=== PATIENT | male | born 1985 | race Caucasian/White ===

== ENCOUNTER 2018-05-19 20:46 | Inpatient (IN) ==
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
[2018-05-19] MEDS: Sod Chloride 0.9% Inj 1,000 ML IV.SIG SCH ×2 (21:45→22:19)
[2018-05-19 22:23] LABS: Baso # (Auto) 0.1 th/mm3 (0.0-0.2); Baso % (Auto) 0.5 % (0.0-2.0); Eos % (Auto) 0.2 % (0.0-4.0); Hematocrit 51.7 % (39.0-51.0); Hemoglobin 17.4 gm/dL (13.0-17.0); Lymph # (Auto) 3.5 th/mm3 (1.0-4.8); Lymph % (Auto) 16.3 % (9.0-44.0); Mean Corpuscular HGB Conc 33.6 % (32.0-36.0); Mean Corpuscular Hemoglobin 27.8 pg (27.0-34.0); Mean Corpuscular Volume 82.9 fL (80.0-100.0); Mean Platelet Volume 8.9 fL (7.0-11.0); Mono # (Auto) 1.8 th/mm3 (0.0-0.9); Mono % (Auto) 8.6 % (0.0-8.0); Neut # (Auto) 15.8 th/mm3 (1.8-7.7); Neut % (Auto) 74.4 % (16.0-70.0); Platelet Count 456 th/mm3 (150-450); Red Blood Count 6.24 mil/mm3 (4.50-5.90); Red Cell Distribution Width 13.9 % (11.6-17.2); White Blood Count 21.3 th/mm3 (4.0-11.0)
[2018-05-19 22:53] LABS: Alanine Aminotransferase 18 U/L (12-78); Albumin 4.3 g/dL (3.4-5.0); Alkaline Phosphatase 90 U/L (45-117); Anion Gap 18 meq/L (5-15); Aspartate Aminotransferase 14 U/L (15-37); Blood Urea Nitrogen 13 mg/dL (7-18); Calcium 9.4 mg/dL (8.5-10.1); Carbon Dioxide 25.2 meq/L (21.0-32.0); Chloride 99 meq/L (98-107); Glomerular Filtration Rate 40 mL/min (>89); Glucose,Random 138 mg/dL (74-106); Sodium 142 meq/L (136-145); Total Protein 9.3 g/dL (6.4-8.2)
[2018-05-19 22:56] LABS: Potassium 2.6 meq/L (3.5-5.1)
[2018-05-19] MEDS ORDERED: Sod Chloride 0.9% Inj 1,000 ML IV.SIG SCH (23:00)
[2018-05-20 01:45] LABS: Calcium 8.2 mg/dL (8.5-10.1); Carbon Dioxide 28.8 meq/L (21.0-32.0)
[2018-05-20 01:52] LABS: Potassium 2.9 meq/L (3.5-5.1)
[2018-05-20 03:39] LABS: Amphetamine Screen,Urine Pos (Neg); Barbiturate Screen,Urine Neg (Neg); Cannabinoid Screen,Urine Neg (Neg); Cocaine Screen,Urine Neg (Neg)
[2018-05-20 03:42] LABS: Opiate Screen,Urine Pos (Neg)
[2018-05-20] MEDS ORDERED: Haloperidol Inj 5 MG/ML Ampul IM ONE (05:37)
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
[2018-05-20] MEDS ORDERED: Amitriptyline 25 MG Tablet PO ONE (22:55)
[2018-05-20] MEDS ORDERED: Sertraline 100 MG Tablet PO ONE (22:57)
[2018-05-21] MEDS ORDERED: Loperamide 2 MG Capsule PO ONE (02:33)
[2018-05-21 02:58] LABS: Baso # (Auto) 0.1 th/mm3 (0.0-0.2); Baso % (Auto) 0.9 % (0.0-2.0); Eos # (Auto) 0.1 th/mm3 (0.0-0.4); Eos % (Auto) 0.8 % (0.0-4.0); Hematocrit 43.3 % (39.0-51.0); Hemoglobin 14.7 gm/dL (13.0-17.0); Lymph # (Auto) 3.1 th/mm3 (1.0-4.8); Lymph % (Auto) 24.4 % (9.0-44.0); Mean Corpuscular HGB Conc 33.9 % (32.0-36.0); Mean Corpuscular Volume 82.6 fL (80.0-100.0); Mean Platelet Volume 8.4 fL (7.0-11.0); Mono % (Auto) 8.2 % (0.0-8.0); Neut # (Auto) 8.4 th/mm3 (1.8-7.7); Neut % (Auto) 65.7 % (16.0-70.0); Platelet Count 327 th/mm3 (150-450); Red Blood Count 5.24 mil/mm3 (4.50-5.90); Red Cell Distribution Width 13.9 % (11.6-17.2); White Blood Count 12.7 th/mm3 (4.0-11.0)
[2018-05-21 03:19] LABS: Anion Gap 8 meq/L (5-15); Blood Urea Nitrogen 8 mg/dL (7-18); Calcium 8.9 mg/dL (8.5-10.1); Carbon Dioxide 28.7 meq/L (21.0-32.0); Chloride 103 meq/L (98-107); Glomerular Filtration Rate Greater Than 89 mL/min (>89); Glucose,Random 96 mg/dL (74-106); Potassium 3.1 meq/L (3.5-5.1); Sodium 140 meq/L (136-145)
[2018-05-21] MEDS ORDERED: hydrALAZINE 25 MG Tablet PO ONE (07:56)
[2018-05-21] MEDS ORDERED: clonazePAM 1 MG Tablet PO ONE (08:15)
[2018-05-21] MEDS ORDERED: Haloperidol Inj 5 MG/ML Ampul IM PRN (17:49)
[2018-05-21 18:51] LABS: Bilirubin,Urine Negative (Negative); Clarity,Urine Clear (Clear); Color,Urine Yellow (Yellw/Straw); Glucose,Urine (UA) Negative (Negative); Hyaline Casts,Urine 15 /lpf (0-3); Leukocyte Esterase,Urine Negative (Negative); Mucus,Urine Few /lpf (Occasional); Nitrite,Urine Negative (Negative); Specific Gravity,Urine 1.008 (1.002-1.035); Squamous Epithelial Cell,Urine <1 /hpf (0-5)
[2018-05-21] MEDS ORDERED: Diphenoxylate/Atropine 2.5/0.025 MG Tablet PO ONE (20:09)
[2018-05-22] MEDS: LORazepam 1 MG Tablet PO PRN ×2 (03:01→20:41)
[2018-05-22] MEDS ORDERED: Bisacodyl 10 MG Supp RECTAL PRN (17:26)
[2018-05-22] MEDS ORDERED: Aluminum/Magnesium/Simethacone Susp 30 ML UDC PO PRN (17:26)
[2018-05-22] MEDS: Acetaminophen 325 MG Tablet PO PRN (20:46)
[2018-05-22] MEDS ORDERED: Senna/Docusate Sodium 8.6/50 MG Tablet PO SCH (21:00)
[2018-05-23] MEDS: LORazepam 1 MG Tablet PO PRN ×2 (02:43→12:13)
[2018-05-23] MEDS: Acetaminophen 325 MG Tablet PO PRN (02:43)
[2018-05-23 05:59] LABS: Anion Gap 12 meq/L (5-15); Blood Urea Nitrogen 6 mg/dL (7-18); Calcium 8.7 mg/dL (8.5-10.1); Carbon Dioxide 30.1 meq/L (21.0-32.0); Chloride 99 meq/L (98-107); Chol/HDL Ratio 3.85 Ratio; Cholesterol 141 mg/dL (120-200); Glomerular Filtration Rate Greater Than 89 mL/min (>89); Glucose,Random 88 mg/dL (74-106); HDL Cholesterol 36.6 mg/dL (40.0-60.0); LDL Cholesterol,Calculated 85 mg/dL (0-99); Sodium 141 meq/L (136-145); Triglycerides 99 mg/dL (42-150)
[2018-05-23 06:10] LABS: Potassium 2.5 meq/L (3.5-5.1)
[2018-05-23] MEDS ORDERED: Potassium Chloride 25 MEQ Effervescent Tablet PO ONE ×2 (08:13→21:00)
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
[2018-05-23] MEDS: Potassium Chlor 10 mEq Premix 10 MEQ/100 ML PIGGYBACK IV.SIG SCH ×2 (12:13→13:38)
[2018-05-23] MEDS: HYDROCHLOROTHIAZIDE 12.5 MG PO SCH ×3 (12:14→15:07)
[2018-05-23 12:23] LABS: Hemoglobin A1c 5.4 % (4.3-6.0)
[2018-05-23] MEDS: clonazePAM 0.5 MG Tablet PO SCH ×2 (15:07→21:47)
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
[2018-05-23] MEDS ORDERED: QUEtiapine 25 MG Tablet PO SCH (21:00)
[2018-05-24] MEDS: clonazePAM 0.5 MG Tablet PO SCH ×3 (05:02→21:12)
[2018-05-24 06:56] LABS: Hematocrit 42.9 % (39.0-51.0); Hemoglobin 14.2 gm/dL (13.0-17.0); Mean Corpuscular HGB Conc 33.2 % (32.0-36.0); Mean Corpuscular Hemoglobin 27.7 pg (27.0-34.0); Mean Corpuscular Volume 83.5 fL (80.0-100.0); Mean Platelet Volume 8.7 fL (7.0-11.0); Platelet Count 285 th/mm3 (150-450); Red Blood Count 5.13 mil/mm3 (4.50-5.90); Red Cell Distribution Width 14.1 % (11.6-17.2); White Blood Count 9.3 th/mm3 (4.0-11.0)
[2018-05-24 07:17] LABS: Anion Gap 9 meq/L (5-15); Blood Urea Nitrogen 7 mg/dL (7-18); Calcium 8.6 mg/dL (8.5-10.1); Carbon Dioxide 29.1 meq/L (21.0-32.0); Chloride 102 meq/L (98-107); Glomerular Filtration Rate Greater Than 89 mL/min (>89); Glucose,Random 90 mg/dL (74-106); Magnesium 2.2 mg/dL (1.5-2.5); Sodium 140 meq/L (136-145)
[2018-05-24 07:19] LABS: Potassium 3.4 meq/L (3.5-5.1)
[2018-05-24] MEDS ORDERED: Potassium Chloride 25 MEQ Effervescent Tablet PO ONE (07:26)
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
[2018-05-24] MEDS: Lisinopril 5 MG Tablet PO SCH (10:02)
[2018-05-24] MEDS: HYDROCHLOROTHIAZIDE 12.5 MG PO SCH (10:14)
[2018-05-24] MEDS ORDERED: QUEtiapine 100 MG Tablet PO SCH (21:00)
[2018-05-24] MEDS: Acetaminophen 325 MG Tablet PO PRN (21:12)
--- NOTE | 2018-05-24 21:52 | P.PNPSY ---
Subjective Remarks: Patient seen for follow up chart reviewed. Discussion with nursing staff reported that patient seclusive to his room, has not showered since admission. Patient found lying down, states being concerned of his pain medication regimen. He reports improved sleep, mood being "ok", less depressed, denies any suicidal ideation nor any further auditory hallucinations. [place] and states that he would think about his childhood memories and that his parents in that house. He states believing that the time there "broke me". He states feeling anxious being moved to a different unit where he would be around more people. Review of Systems All other systems reviewed negative except as stated in HPI Mental Status Examination Appearance: Disheveled Consciousness: Alert Orientation: Person (At least) Motor Activity: Other (No motor abnormalities noted) Speech: Other (Selectively mute at times) Language: Other (Limited sample) Mood: Oppositional Affect: Blunt Thought Process & Associations: Other (Limited sample) Thought Content: Preoccupations Hallucination Type: Auditory Suicidal Ideation: No Suicidal Plan: No Suicidal Intention: No Homicidal Ideation: No (No specific victim) Homicidal Plan: No Homicidal Intention: No Insight: Poor Judgment: Poor Assessment and Plan - Assessment (1) Adjustment disorder with mixed disturbance of emotions and conduct Code(s): F43.25 - Adjustment disorder with mixed disturbance of emotions and conduct Status: Acute (2) Polysubstance abuse Code(s): F19.10 - Other psychoactive substance abuse, uncomplicated Status: Acute - Plan Plan: Patient continues with depressed mood, denies any suicidal ideation. He is noted with poor hygiene and is encouraged to shower. Will increase quetiapine to 100mg HS for mood stabilization. Monitor mood and behavior. Discharge planningi in progress. Justification for Continued Inpatient Stay: At risk for further decompensation at lower level of care.
[2018-05-25] MEDS: clonazePAM 0.5 MG Tablet PO SCH ×3 (06:09→21:26)
[2018-05-25] MEDS: Lisinopril 5 MG Tablet PO SCH (08:52)
--- NOTE | 2018-05-25 10:06 | P.PNPSY ---
Subjective Remarks: Patient seen for follow, chart reviewed. Discussion nursing staff reported the patient continues to have anxiety about leaving his room, compliant with medications. Patient was found lying hospital bed noted B, cooperative. Patient states that he is feeling alright, feeling less depressed, denying suicide ideations at this time. Patient reports no auditory visual hallucinations but continues to have anxiety about being around other people. Patient states that for the past 7 years he has only gone to a convenience store out of his home I handful of times but aware that he he will need to engage in therapy to help with his anxiety. Patient was encouraged to participate in groups and activities on the unit which he agreed. Review of Systems All other systems reviewed negative except as stated in HPI Mental Status Examination Appearance: Disheveled Consciousness: Alert Orientation: Person (At least) Motor Activity: Other (No motor abnormalities noted) Speech: Unremarkable Language: Adequate Fund of Knowledge: Inadequate Attention and Concentration: Adequate Memory: Unremarkable Mood: Good Affect: Sad Thought Process & Associations: Linear Thought Content: Preoccupations (With being around other people) Hallucination Type: None Delusion Type: None Suicidal Ideation: No Suicidal Plan: No Suicidal Intention: No Homicidal Ideation: No Homicidal Plan: No Homicidal Intention: No Insight: Poor Judgment: Poor Assessment and Plan - Assessment (1) Adjustment disorder with mixed disturbance of emotions and conduct Code(s): F43.25 - Adjustment disorder with mixed disturbance of emotions and conduct Status: Acute (2) Polysubstance abuse Code(s): F19.10 - Other psychoactive substance abuse, uncomplicated Status: Acute - Plan Plan: Patient this time continues to report feeling less depressed, denying suicide ideations but continues with anxiety of being around others. We will continue to titrate quetiapine to 150 mg p.o. at bedtime for depression as a monotherapy. Continue rest of medications. Continue to monitor mood and behavior. Encourage patient to participate in groups and activities on the unit. Discharge planning a progress. Justification for Continued Inpatient Stay: At risk of further decompensation a lower level care.
[2018-05-25] MEDS: QUEtiapine 100 MG Tablet PO SCH (21:25)
[2018-05-26] MEDS: clonazePAM 0.5 MG Tablet PO SCH ×3 (06:00→22:09)
[2018-05-26] MEDS: Lisinopril 5 MG Tablet PO SCH (09:00)
--- NOTE | 2018-05-26 13:16 | P.PNPSY ---
Subjective Remarks: The patient was seen today for psychiatric reevaluation. The case was discussed with nurse in charge. Patient reports that she feels okay. She has been compliant her medications, no significant side effects reported. At times it seems to be oddly related. But fully oriented at this moment. Mental Status Examination Appearance: Disheveled Consciousness: Alert Orientation: Person (At least) Motor Activity: Other (No motor abnormalities noted) Speech: Unremarkable Language: Adequate Fund of Knowledge: Inadequate Attention and Concentration: Adequate Memory: Unremarkable Mood: Good Affect: Sad Thought Process & Associations: Linear Thought Content: Preoccupations (With being around other people) Hallucination Type: None Delusion Type: None Suicidal Ideation: No Suicidal Plan: No Suicidal Intention: No Homicidal Ideation: No Homicidal Plan: No Homicidal Intention: No Insight: Poor Judgment: Poor Assessment and Plan - Assessment (1) Adjustment disorder with mixed disturbance of emotions and conduct Code(s): F43.25 - Adjustment disorder with mixed disturbance of emotions and conduct Status: Acute (2) Polysubstance abuse Code(s): F19.10 - Other psychoactive substance abuse, uncomplicated Status: Acute - Plan Plan: Continue current psychotropic regimen. Justification for Continued Inpatient Stay: Continue psychiatric hospitalization for stabilization
[2018-05-26] MEDS: QUEtiapine 100 MG Tablet PO SCH (20:23)
[2018-05-27] MEDS: clonazePAM 0.5 MG Tablet PO SCH ×3 (06:38→22:00)
[2018-05-27] MEDS: Lisinopril 5 MG Tablet PO SCH (08:19)
--- NOTE | 2018-05-27 16:30 | P.PNPSY ---
Subjective Remarks: Pt seen and discussed with staff. He was admitted for suicidal ideation and depression. He has been compliant with medications and denies side effects. He has been somewhat isolative but has started attending groups. He denies SI today. Mental Status Examination Appearance: Disheveled Consciousness: Alert Orientation: Person (At least) Motor Activity: Other (No motor abnormalities noted) Speech: Unremarkable Language: Adequate Fund of Knowledge: Inadequate Attention and Concentration: Adequate Memory: Unremarkable Mood: Good Affect: Sad Thought Process & Associations: Linear Thought Content: Preoccupations (With being around other people) Hallucination Type: None Delusion Type: None Suicidal Ideation: No Suicidal Plan: No Suicidal Intention: No Homicidal Ideation: No Homicidal Plan: No Homicidal Intention: No Insight: Poor Judgment: Poor Assessment and Plan - Assessment (1) Adjustment disorder with mixed disturbance of emotions and conduct Code(s): F43.25 - Adjustment disorder with mixed disturbance of emotions and conduct Status: Acute (2) Polysubstance abuse Code(s): F19.10 - Other psychoactive substance abuse, uncomplicated Status: Acute - Plan Plan: Continue current tx plan Justification for Continued Inpatient Stay: risk of decompensation
[2018-05-27 17:30] VITALS: RESP 20
[2018-05-27] MEDS: QUEtiapine 100 MG Tablet PO SCH (20:39)
[2018-05-28 05:52] VITALS: BP 168/92; PULSE 112; TEMP 97.4; O2SAT 95
[2018-05-28] MEDS: Lisinopril 5 MG Tablet PO SCH (08:24)
--- NOTE | 2018-05-28 12:20 | P.TTN ---
- Patient Problems Problems: 1. Discharge planning 2. Medication compliance 3. Knowledge deficit 4. Lack of coping skills - Progress Toward Goals Provider Present: Dr. Dean Tavarez Provider Input: 05/28/2018; patient will be dc back to dorm room with outpatient follow-up Nurse(s) Present: RN Nurse Input: 05/28/2018 Stable on meds, compliant with treatment no behavior Psychiatric Counselors Present: Edita Gates [facility] Psychiatric Therapist Input: Counselor will set up outpatient follow-up, arrange transport back to [facility] dorm or with pt's friends. Mental health with [facility] therapist, and med management with [facility]/RT/OT/[place] Present: Mello Franklin OT - Documentation Teaching Recipient: Patient
[2018-05-28] MEDS: clonazePAM 0.5 MG Tablet PO SCH (13:24)
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
== END 2018-05-28 16:30 | disposition home or self-care (01) ==
LOC: NEPD 20:46 → NEDA 05-22 17:31 → H4EA 05-22 19:30
PROVIDERS: ADMIT Student in an Organized Health Care Education/Training Program; ATTEND Student in an Organized Health Care Education/Training Program

== ENCOUNTER 2018-05-29 23:03 | Inpatient (IN) ==
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
[2018-05-30] MEDS ORDERED: Sod Chloride 0.9% Inj 1,000 ML IV.SIG SCH (08:30)
[2018-05-30] MEDS ORDERED: Bisacodyl 10 MG Supp RECTAL PRN (08:32)
[2018-05-30] MEDS ORDERED: Aluminum/Magnesium/Simethacone Susp 30 ML UDC PO PRN (08:32)
[2018-05-30] MEDS ORDERED: Non-Formulary Drug (Oxycodone [Oxycodone] 30 MG) PO PRN (08:34)
[2018-05-30 08:42] VITALS: RESP 18
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
[2018-05-30] MEDS: Senna/Docusate Sodium 8.6/50 MG Tablet PO SCH ×2 (08:51→20:38)
[2018-05-30] MEDS: Lisinopril 5 MG Tablet PO SCH (08:52)
[2018-05-30 08:59] LABS: Baso # (Auto) 0.1 th/mm3 (0.0-0.2); Baso % (Auto) 0.8 % (0.0-2.0); Eos # (Auto) 0.1 th/mm3 (0.0-0.4); Eos % (Auto) 0.6 % (0.0-4.0); Hematocrit 51.1 % (39.0-51.0); Hemoglobin 16.7 gm/dL (13.0-17.0); Lymph % (Auto) 20.6 % (9.0-44.0); Mean Corpuscular HGB Conc 32.6 % (32.0-36.0); Mean Corpuscular Hemoglobin 27.6 pg (27.0-34.0); Mean Corpuscular Volume 84.6 fL (80.0-100.0); Mean Platelet Volume 8.4 fL (7.0-11.0); Mono # (Auto) 1.2 th/mm3 (0.0-0.9); Mono % (Auto) 8.3 % (0.0-8.0); Neut % (Auto) 69.7 % (16.0-70.0); Platelet Count 394 th/mm3 (150-450); Red Blood Count 6.04 mil/mm3 (4.50-5.90); Red Cell Distribution Width 14.7 % (11.6-17.2); White Blood Count 14.4 th/mm3 (4.0-11.0)
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
[2018-05-30] MEDS: Amphetamine/Dextroamphetamine XR 30 MG Capsule PO SCH (09:27)
[2018-05-30 09:29] LABS: Alanine Aminotransferase 29 U/L (12-78); Albumin 4.2 g/dL (3.4-5.0); Anion Gap 11 meq/L (5-15); Aspartate Aminotransferase 15 U/L (15-37); Blood Urea Nitrogen 17 mg/dL (7-18); Calcium 9.3 mg/dL (8.5-10.1); Carbon Dioxide 21.1 meq/L (21.0-32.0); Chloride 103 meq/L (98-107); Glomerular Filtration Rate Greater Than 89 mL/min (>89); Glucose,Random 107 mg/dL (74-106); Potassium 3.5 meq/L (3.5-5.1); Sodium 135 meq/L (136-145)
[2018-05-30 09:32] LABS: Alkaline Phosphatase 75 U/L (45-117); Total Protein 8.1 g/dL (6.4-8.2)
[2018-05-30] MEDS ORDERED: QUEtiapine 100 MG Tablet PO SCH (21:00)
[2018-05-30] MEDS: clonazePAM 0.5 MG Tablet PO SCH (21:14)
[2018-05-31] MEDS: clonazePAM 0.5 MG Tablet PO SCH ×2 (06:30→14:28)
[2018-05-31] MEDS: Lisinopril 5 MG Tablet PO SCH (08:05)
[2018-05-31] MEDS: Senna/Docusate Sodium 8.6/50 MG Tablet PO SCH (08:05)
[2018-05-31] MEDS: Amphetamine/Dextroamphetamine XR 30 MG Capsule PO SCH (08:06)
[2018-05-31 08:28] LABS: Anion Gap 8 meq/L (5-15); Blood Urea Nitrogen 19 mg/dL (7-18); Carbon Dioxide 29.1 meq/L (21.0-32.0); Chloride 102 meq/L (98-107); Cholesterol 141 mg/dL (120-200); Glomerular Filtration Rate Greater Than 89 mL/min (>89); Glucose,Random 80 mg/dL (74-106); Potassium 3.4 meq/L (3.5-5.1); Sodium 139 meq/L (136-145); Triglycerides 112 mg/dL (42-150)
[2018-05-31 08:30] LABS: Chol/HDL Ratio 4.49 Ratio; HDL Cholesterol 31.4 mg/dL (40.0-60.0); LDL Cholesterol,Calculated 87 mg/dL (0-99)
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
[2018-05-31 12:18] LABS: Baso # (Auto) 0.1 th/mm3 (0.0-0.2); Eos # (Auto) 0.2 th/mm3 (0.0-0.4); Eos % (Auto) 1.5 % (0.0-4.0); Hematocrit 47.3 % (39.0-51.0); Hemoglobin 16.1 gm/dL (13.0-17.0); Lymph # (Auto) 3.4 th/mm3 (1.0-4.8); Lymph % (Auto) 27.6 % (9.0-44.0); Mean Corpuscular HGB Conc 34.1 % (32.0-36.0); Mean Corpuscular Hemoglobin 28.7 pg (27.0-34.0); Mean Corpuscular Volume 84.2 fL (80.0-100.0); Mean Platelet Volume 8.4 fL (7.0-11.0); Mono % (Auto) 8.3 % (0.0-8.0); Neut # (Auto) 7.6 th/mm3 (1.8-7.7); Neut % (Auto) 61.6 % (16.0-70.0); Platelet Count 394 th/mm3 (150-450); Red Blood Count 5.62 mil/mm3 (4.50-5.90); White Blood Count 12.3 th/mm3 (4.0-11.0)
[2018-05-31 15:28] LABS: Bilirubin,Urine Negative (Negative); Clarity,Urine Hazy (Clear); Color,Urine Yellow (Yellw/Straw); Glucose,Urine (UA) Negative (Negative); Hyaline Casts,Urine 7 /lpf (0-3); Leukocyte Esterase,Urine Negative (Negative); Mucus,Urine Few /lpf (Occasional); Nitrite,Urine Negative (Negative); Specific Gravity,Urine 1.025 (1.002-1.035); Squamous Epithelial Cell,Urine <1 /hpf (0-5)
[2018-05-31 15:55] LABS: Amphetamine Screen,Urine Pos (Neg); Barbiturate Screen,Urine Neg (Neg); Cannabinoid Screen,Urine Neg (Neg); Cocaine Screen,Urine Neg (Neg)
[2018-05-31 15:58] LABS: Opiate Screen,Urine Neg (Neg)
[2018-05-31 16:44] LABS: Hemoglobin A1c 5.2 % (4.3-6.0)
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
[2018-05-31 18:44] VITALS: BP 150/85; PULSE 118; TEMP 97.5; O2SAT 95
== END 2018-05-31 20:15 | disposition home or self-care (01) ==
LOC: NEPD 23:03 → NEDA 05-30 08:36 → H4EA 05-30 11:00
PROVIDERS: ADMIT Psychiatry & Neurology Psychiatry; ATTEND Psychiatry & Neurology Psychiatry

== ENCOUNTER 2018-06-03 12:27 | Inpatient (IN) ==
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
[2018-06-03] MEDS ORDERED: Lisinopril 5 MG Tablet PO ONE (20:30)
[2018-06-03] MEDS ORDERED: QUEtiapine 25 MG Tablet PO ONE (21:00)
[2018-06-03] MEDS ORDERED: QUEtiapine 100 MG Tablet PO ONE (21:00)
[2018-06-04] MEDS ORDERED: Aluminum/Magnesium/Simethacone Susp 30 ML UDC PO PRN (09:51)
[2018-06-04] MEDS ORDERED: Acetaminophen 325 MG Tablet PO PRN (09:51)
[2018-06-04] MEDS: Lisinopril 5 MG Tablet PO SCH (10:33)
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
[2018-06-04] MEDS: clonazePAM 0.5 MG Tablet PO SCH ×2 (14:33→21:04)
[2018-06-04] MEDS: QUEtiapine 100 MG Tablet PO SCH (21:03)
[2018-06-05] MEDS: clonazePAM 0.5 MG Tablet PO SCH ×3 (06:34→13:30)
[2018-06-05 07:46] LABS: Anion Gap 12 meq/L (5-15); Blood Urea Nitrogen 9 mg/dL (7-18); Calcium 8.6 mg/dL (8.5-10.1); Carbon Dioxide 28.5 meq/L (21.0-32.0); Chloride 103 meq/L (98-107); Cholesterol 131 mg/dL (120-200); Glomerular Filtration Rate Greater Than 89 mL/min (>89); Glucose,Random 76 mg/dL (74-106); Potassium 3.4 meq/L (3.5-5.1); Sodium 143 meq/L (136-145); Triglycerides 83 mg/dL (42-150)
[2018-06-05 07:47] LABS: Chol/HDL Ratio 3.78 Ratio; HDL Cholesterol 34.6 mg/dL (40.0-60.0); LDL Cholesterol,Calculated 80 mg/dL (0-99)
[2018-06-05] MEDS: Lisinopril 5 MG Tablet PO SCH (08:33)
[2018-06-05] MEDS ORDERED: Aluminum/Magnesium/Simethacone Susp 30 ML UDC PO PRN (14:03)
--- NOTE | 2018-06-05 14:13 | P.PNPSY ---
Subjective Remarks: Patient initially admitted by Dr. Stubbs,'s H&P reviewed and agreed with. Patient is a voluntary patient. Patient initial psychiatric admission template orders have been reviewed and finished. We have also talked to patient's mother 's name is Vandana at [phone] was concerned about patient's description of increased auditory hallucinations of a command threatening nature. She also continues somewhat confused about his prior prescriptions for psychostimulant opiate and benzodiazepine. We will place those 3 categories on hold we will continue his Seroquel 150 mg at bedtime and add Seroquel 25 mg 9 AM 1 PM and 4 PM. Patient did not have urine toxicology drawn in the ED we will have one done today also to verify his use of the other medications. Hopeless be fairly short stay. Patient today somewhat minimizes the auditory hallucinations today than more an intermittent buzzing noise. He denies any visual hallucinations. Denies any suicidality. Review of Systems All other systems reviewed negative except as stated in HPI Mental Status Examination Appearance: Appropriate Consciousness: Alert Orientation: x4 Motor Activity: Normal gait Speech: Unremarkable Language: Adequate Fund of Knowledge: Adequate Attention and Concentration: Adequate Memory: Unremarkable Mood: Sad Affect: Other (Decreased range and intensity) Thought Process & Associations: Intact Thought Content: Appropriate Hallucination Type: Auditory Delusion Type: None Suicidal Ideation: No Suicidal Plan: No Suicidal Intention: No Homicidal Ideation: No Homicidal Plan: No Homicidal Intention: No Insight: Poor Judgment: Poor Assessment and Plan - Assessment (1) Unspecified psychosis Code(s): F29 - Unspecified psychosis not due to a substance or known physiological condition Status: Acute - Plan Plan: Patient remains with psychotic features, continues to isolate, she medication adjustments above. Justification for Continued Inpatient Stay: At this time patient would decompensate a place to a lower level of care Discharge Planning: Probable return home Request Healthcare Surrogate/Guardian Advocate?: No (1) Unspecified psychosis Qualifiers: Psychosis type: brief psychotic disorder Qualified Code(s): F23 - Brief psychotic disorder
[2018-06-05 16:19] LABS: Hemoglobin A1c 5.2 % (4.3-6.0)
[2018-06-05] MEDS: QUEtiapine 25 MG Tablet PO SCH (17:03)
[2018-06-05 18:29] LABS: Amphetamine Screen,Urine Pos (Neg); Barbiturate Screen,Urine Neg (Neg); Cannabinoid Screen,Urine Neg (Neg); Clarity,Urine Hazy (Clear); Cocaine Screen,Urine Neg (Neg); Color,Urine Amber (Yellw/Straw); Glucose,Urine (UA) Negative (Negative); Hyaline Casts,Urine 13 /lpf (0-3); Leukocyte Esterase,Urine Negative (Negative); Mucus,Urine Many /lpf (Occasional); Nitrite,Urine Negative (Negative); Specific Gravity,Urine 1.035 (1.002-1.035)
[2018-06-05 18:30] LABS: Bilirubin,Urine Negative (Negative); Ictotest,Urine Negative (Negative)
[2018-06-05 18:34] LABS: Opiate Screen,Urine Neg (Neg)
[2018-06-05] MEDS: QUEtiapine 100 MG Tablet PO SCH (21:30)
[2018-06-06] MEDS: QUEtiapine 25 MG Tablet PO SCH ×3 (08:48→18:24)
[2018-06-06] MEDS: Lisinopril 5 MG Tablet PO SCH (08:48)
--- NOTE | 2018-06-06 11:04 | P.PNPSY ---
Subjective Remarks: Patient seen in his room with nurse Barak, chart reviewed, patient compliant medication. Patient denies suicidality today, but states he still with auditory hallucinations of a buzzing nature that he states is somewhat overriding my voice today. He complains still of some back pain without much relief from the Tylenol. We will discontinue the Tylenol and offer Motrin 800 mg every 8 hours as needed for now we will continue Seroquel no change Review of Systems All other systems reviewed negative except as stated in HPI Mental Status Examination Appearance: Appropriate Consciousness: Alert Orientation: x4 Motor Activity: Normal gait Speech: Unremarkable Language: Adequate Fund of Knowledge: Adequate Attention and Concentration: Adequate Memory: Unremarkable Mood: Sad Affect: Other (Decreased range and intensity) Thought Process & Associations: Intact Thought Content: Appropriate Hallucination Type: Auditory (A buzzing type noise) Delusion Type: None Suicidal Ideation: No Suicidal Plan: No Suicidal Intention: No Homicidal Ideation: No Homicidal Plan: No Homicidal Intention: No Insight: Poor Judgment: Poor Assessment and Plan - Assessment (1) Unspecified psychosis Code(s): F29 - Unspecified psychosis not due to a substance or known physiological condition Status: Acute - Plan Plan: Patient continues to voice vague auditory hallucinations, he is somewhat isolating, also complains of some pain will discontinue Tylenol and Motrin, continue other medications no change at this time Justification for Continued Inpatient Stay: At this time patient would decompensate a place to a lower level of care Discharge Planning: To be determined Request Healthcare Surrogate/Guardian Advocate?: No (1) Unspecified psychosis Qualifiers: Psychosis type: brief psychotic disorder Qualified Code(s): F23 - Brief psychotic disorder
--- NOTE | 2018-06-06 13:49 | P.TTN ---
- Patient Problems Problems: 1. Discharge planning 2. Medication compliance 3. Knowledge deficit 4. Lack of coping skills - Progress Toward Goals Provider Present: Dr. Dejaun Mera, Dr. Dean Tavarez Provider Input: Ede- Recent admission, Depressed, history of being non- compliant with medication, in process of searching for new out patient provider for mediaction, mother is expressing she would like for the patient to remain in the hospital Nurse Input: Barak- patient is medication complaint, denies suicidal ideation, seclusive Psychiatric Counselors Present: Efren Mooney Jr., RCSWI, Other Group Spec/RT/OT/[place] Present: Asuncion Luis, GPS, Mello Franklin, OT Group Spec/RT/OT/[place] Input: Asuncion - does not attend groups, anti-social, easily overwhelmed, isolates Clinical Coordinator: Rachelle Barboza, [facility] Clinical Coordinator Input: Patient may benefit from a care coordiantion referral with [facility] out patient - Documentation Teaching Recipient: Patient
[2018-06-06] MEDS: QUEtiapine 100 MG Tablet PO SCH (20:52)
[2018-06-07] MEDS: QUEtiapine 25 MG Tablet PO SCH ×3 (08:00→18:23)
[2018-06-07] MEDS: Lisinopril 5 MG Tablet PO SCH (08:00)
--- NOTE | 2018-06-07 15:33 | P.PNPSY ---
Subjective Remarks: Patient seen in his room with nurse Barak and medical student Giana. Chart reviewed. Patient compliant medication. Patient states she is feeling better today the auditory noises of causing are markedly decreased. He says he slept well he denies suicidality at this time and does deny voices. He is now requesting discharge states he wants to go home that he has an appointment with his own psychiatrist for about 2 or 3:00 tomorrow. At this time feel patient has responding to the medications I feel another 24 hours observation of the new medication regimen would be appropriate. If he does well he can be discharged tomorrow early and make it to his own psychiatrist appointment in the afternoon Review of Systems All other systems reviewed negative except as stated in HPI Mental Status Examination Appearance: Appropriate Consciousness: Alert Orientation: x4 Motor Activity: Normal gait Speech: Unremarkable Language: Adequate Fund of Knowledge: Adequate Attention and Concentration: Adequate Memory: Unremarkable Mood: Sad Affect: Other (Decreased range and intensity) Thought Process & Associations: Intact Thought Content: Appropriate Hallucination Type: Auditory (A buzzing type noise markedly decreased today) Delusion Type: None Suicidal Ideation: No Suicidal Plan: No Suicidal Intention: No Homicidal Ideation: No Homicidal Plan: No Homicidal Intention: No Insight: Fair Judgment: Poor Assessment and Plan - Assessment (1) Unspecified psychosis Code(s): F29 - Unspecified psychosis not due to a substance or known physiological condition Status: Acute - Plan Plan: Patient is showing some improvement mood and affect the denying suicidality and stating the auditory hallucinations are markedly diminishing. For now continue treatment if patient does well overnight consider discharge tomorrow so he may follow-up with his psychiatric appointment tomorrow afternoon Justification for Continued Inpatient Stay: At this time patient would decompensate if not placed in an appropriate level of care Discharge Planning: Possible discharge tomorrow to follow-up private psychiatrist tomorrow and return home Request Healthcare Surrogate/Guardian Advocate?: No (1) Unspecified psychosis Qualifiers: Psychosis type: brief psychotic disorder Qualified Code(s): F23 - Brief psychotic disorder
[2018-06-07] MEDS: QUEtiapine 100 MG Tablet PO SCH (20:54)
[2018-06-08 06:20] VITALS: BP 152/99; PULSE 84; RESP 16; TEMP 98; O2SAT 98
[2018-06-08] MEDS: Lisinopril 5 MG Tablet PO SCH (08:42)
[2018-06-08] MEDS: QUEtiapine 25 MG Tablet PO SCH (08:43)
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
== END 2018-06-08 12:00 | disposition home or self-care (01) ==
LOC: NEPD 12:27 → NEDA 06-04 09:50 → H260 06-04 11:13
PROVIDERS: ADMIT Psychiatry & Neurology Psychiatry; ATTEND Psychiatry & Neurology Psychiatry